=== PATIENT | female | born 1985 | race Hispanic/Latino ===

== ENCOUNTER 2019-04-29 09:52 | Outpatient (CLI) | payer MEDICAID ==
[2019-04-29] MEDS ORDERED: LACTATED RINGERS 500 ML IV ONE (12:09)
[2019-04-29 13:05] VITALS: BP 138/87
--- NOTE | 2019-04-29 13:52 | Ultrasound Report ---
ULTRASOUND OBSTETRIC LIMITED INDICATION / CLINICAL INFORMATION: fell down stairs. TECHNIQUE: Transabdominal ultrasound imaging. COMPARISON: None available. FINDINGS: HEART RATE (beats per minute): 157 AMNIOTIC FLUID INDEX (cm) = not measured PRESENTATION: Cephalic. ADDITIONAL FINDINGS: The placenta is anterior, left lateral, grade 0. No abruption is demonstrated. IMPRESSION: No significant abnormality. Signer Name: Allen Griggs Jr, MD Signed: 04/29/2019 1:48 PM Workstation Name: [id number]
== END 2019-04-29 16:00 | disposition home or self-care (01) ==
LOC: TRG 09:52
PROVIDERS: ATTEND Obstetrics & Gynecology
DX: O47.02 False labor before 37 completed weeks of gestation, second trimester (principal); Z3A.26 26 weeks gestation of pregnancy
CPT/HCPCS: 59025; 76815; Q0177

== ENCOUNTER 2019-05-12 12:26 | Outpatient (CLI) | payer MEDICAID ==
[2019-05-12 12:40] VITALS: BP 123/73
[2019-05-12] MEDS ORDERED: DIPHENOXYLATE/ATROPINE TAB PO ONE (12:53)
[2019-05-12] MEDS ORDERED: LACTATED RINGERS 1,000 ML IV ONE (12:53)
[2019-05-12] MEDS ORDERED: FAMOTIDINE 20 MG/2 ML INJ IV ONE (12:54)
[2019-05-12] MEDS ORDERED: LACTATED RINGERS 1,000 ML IV SCH (13:00)
[2019-05-12 13:42] LABS: Hematocrit 32.7 % (30.3-42.9); Hemoglobin 11.4 gm/dl (10.1-14.3); Mean Corpuscular HGB Conc 35 % (30-34); Mean Corpuscular Volume 89 fl (79-97); Platelet Count 277 K/mm3 (140-440); Red Blood Count 3.66 M/mm3 (3.65-5.03); Red Cell Distribution Width 13.2 % (13.2-15.2)
[2019-05-12 14:01] LABS: Alanine Aminotransferase 14 units/L (7-56); Albumin 3.6 g/dL (3.9-5); BUN/Creatinine Ratio 15; Blood Urea Nitrogen 9 mg/dL (7-17); Calcium 9.1 mg/dL (8.4-10.2); Hemolysis Index 17
[2019-05-12 14:18] LABS: Bacteria,Urine 2+ /HPF (Negative); Bilirubin,Urine NEG (Negative); Blood,Urine NEG (Negative); Color,Urine Yellow (Yellow); Mucus,Urine FEW /HPF; Protein,Urine <15 mg/dL mg/dL (Negative); Urobilinogen,Urine < 2.0 mg/dL (<2.0)
== END 2019-05-12 14:55 | disposition home or self-care (01) ==
LOC: TRG 12:26
PROVIDERS: ATTEND Obstetrics & Gynecology
DX: O26.893 Other specified pregnancy related conditions, third trimester (principal); R19.7 Diarrhea, unspecified; O16.3 Unspecified maternal hypertension, third trimester; O47.03 False labor before 37 completed weeks of gestation, third trimester; Z3A.28 28 weeks gestation of pregnancy
CPT/HCPCS: 36415; 59025; 80053; 81001; 85027; 87086; 87400; 96360; 96361; 96374; J7120

== ENCOUNTER 2019-05-23 12:01 | Outpatient (CLI) | payer MEDICAID ==
[2019-05-23 12:40] LABS: Bacteria,Urine 2+ /HPF (Negative); Bilirubin,Urine NEG (Negative); Blood,Urine NEG (Negative); Color,Urine Yellow (Yellow); Mucus,Urine FEW /HPF; Protein,Urine <15 mg/dL mg/dL (Negative); Urobilinogen,Urine < 2.0 mg/dL (<2.0)
[2019-05-23] MEDS ORDERED: LACTATED RINGERS 1,000 ML IV SCH (13:00)
[2019-05-23 14:42] VITALS: BP 146/79
[2019-05-23] MEDS ORDERED: BICITRA ORAL LIQD 30ML ONE (14:47)
== END 2019-05-23 15:11 | disposition home or self-care (01) ==
LOC: TRG 12:01
PROVIDERS: ATTEND Obstetrics & Gynecology
DX: O26.893 Other specified pregnancy related conditions, third trimester (principal); R10.11 Right upper quadrant pain; R19.7 Diarrhea, unspecified; O10.913 Unspecified pre-existing hypertension complicating pregnancy, third trimester; O47.03 False labor before 37 completed weeks of gestation, third trimester; Z3A.30 30 weeks gestation of pregnancy
CPT/HCPCS: 36415; 59025; 81001; 82150; 83690; 96360; 96361; J7120

== ENCOUNTER 2019-06-17 13:06 | Outpatient (CLI) | payer MEDICAID ==
[2019-06-17] MEDS ORDERED: ALUM-MAG HYDROXIDE-SIMETHICONE 200-200-20MG/5ML ORAL LIQD 30 ML PO PRN (13:54)
[2019-06-17] MEDS ORDERED: DOCUSATE SODIUM 100 MG CAP PO PRN (13:54)
[2019-06-17] MEDS ORDERED: SIMETHICONE 80 MG CHEW TAB PO PRN (13:54)
[2019-06-17] MEDS ORDERED: ONDANSETRON 4 MG ODT TAB PO PRN (13:54)
[2019-06-17] MEDS ORDERED: MAGNESIUM SULFATE 4 GM/100 ML BAG IV ONE (13:54)
[2019-06-17] MEDS ORDERED: hydrALAZINE 20 MG/1 ML INJ IV PRN (13:54)
[2019-06-17] MEDS ORDERED: MAGNESIUM HYDROXIDE (MOM) ORAL LIQD UDC PO PRN (13:54)
[2019-06-17] MEDS ORDERED: MAGNESIUM SULFATE 40GM/1000ML 40 GM/1,000 ML BAG IV SCH (14:00)
[2019-06-17 14:01] LABS: Hematocrit 33.7 % (30.3-42.9); Hemoglobin 11.3 gm/dl (10.1-14.3); Mean Corpuscular HGB Conc 34 % (30-34); Mean Corpuscular Volume 86 fl (79-97); Platelet Count 301 K/mm3 (140-440); Red Cell Distribution Width 13.5 % (13.2-15.2)
[2019-06-17 14:23] LABS: Alanine Aminotransferase 18 units/L (7-56); Uric Acid 4.1 mg/dL (3.5-7.6)
[2019-06-17] MEDS: BETAMET ACET/BETAMET NA PH 6 MG/ML INJ 5 ML MDV IM SCH (15:34)
[2019-06-17] MEDS: LACTATED RINGERS 1,000 ML IV SCH ×2 (15:36→23:20)
[2019-06-17 16:19] LABS: Bacteria,Urine 3+ /HPF (Negative); Bilirubin,Urine NEG (Negative); Blood,Urine NEG (Negative); Color,Urine Yellow (Yellow); Mucus,Urine 3+ /HPF; Protein,Urine <15 mg/dL mg/dL (Negative); Urobilinogen,Urine < 2.0 mg/dL (<2.0)
--- NOTE | 2019-06-17 16:58 | History and Physical Report ---
History of Present Illness Date of examination: 06/17/19 Chief complaint: pt admitted from [facility] for admission to evaluate blood pressure History of present illness: EDC Calculations by LMP: 08/01/2019 Past History : 4 Term Births: 3 Premature Births: 0 Living Children: 3 Para: 3 Mult. Births: 0 Prev : 0 Prev. attempt? none Aborta: 0 Elect. Ab: 0 Spont. Ab: 0 Ectopics: 0 # 1 Delivery date: 01/2005 Delivery type: Anesthesia type: epidural [place] [facility] [place]: Female weight: 5-12 Comments: elvated BP 3rd trimester no meds # 2 Delivery date: 03/2009 Weeks Gestation: 37 Delivery type: Anesthesia type: epidural Delivery location: [facility] Infant Sex: Female weight: 6-7 Comments: elevated BP dx @ 16 weeks on meds ; IOL @ 37 weeks for PIH # 3 Delivery date: 07/24/2013 Weeks Gestation: 37 Delivery type: Vaginal Anesthesia type: epidural Delivery location: [facility] Sex: female weight: 5.06 Comments: pre-eclampsia/eclampsia Past Medical History: Thyroid Disorder stopped meds Pt encouraged to f/u with PCP Depression - takes Effexor daily Hypertension Reports "sponge kidneys" with 2nd preg. and saw neuro ophthalmologist once. No f/u needed. Past Surgical History: Reviewed history from 06/18/2012 and no changes required: negative Breast Augmentation: 11/2011 Social History: Patient is Patient is single Smoking History: Patient has never smoked. Past Medical History Abnormal PAP: negative POPPY Exposure: negative Infertility: negative Uterine Anomaly: negative Uterine Surgery (not C/S): negative Other Gynecologic Problems: negative Social Hx: Patient is Patient is single Smoking History: Patient has never smoked. Infection History Hx of STD: none HIV Risk Eval: low risk Hepatitis B Risk Eval: low risk Personal hx. of genital herpes: no Partner hx. of genital herpes: no Rash, Viral, or Febrile illness since last LMP? no Genetic History Congenital Heart Defect: Mom: no Dad: no Michael Disease: Mom: no Dad: no Thalassemia Mom: no Dad: no Neural Tube Defect Mom: no Dad: no Down's Syndrome Mom: no Dad: no Mono-Sachs Mom: no Dad: no Sickle Cell Disease/Trait Mom: no Dad: no Hemophilia Mom: no Dad: no Muscular Dystrophy Mom: no Dad: no Cystic Fibrosis Mom: no Dad: no [place] Chorea Mom: no Dad: no Mental Retardation Mom: no Dad: no Fragile X Mom: no Dad: no Other Genetic/Chromosomal Disorder Mom: no Dad: no Child w/other defect Mom: no Dad: no Enviromental Exposures Xray Exposure: no Medication, drug, or alcohol use since LMP: no Chemical/Other Exposure: no Exposure to Cat Liter: no Hx of Parvovirus (Fifth Disease): no Active Medications (reviewed today): VENLAFAXINE HCL ER 225 MG ORAL XR24H () Current Allergies (reviewed today): No known allergies Past History Past Medical History: hypertension, thyroid disease, other (depression) Past Surgical History: breast surgery (augmentation) Family/Genetic History: none Social history: no significant social history - Obstetrical History Expected Date of Delivery: 08/01/19 Actual Gestation: 33 Week(s) 4 Day(s) : 4 Para: 3 Hx # Term Pregnancies: 3 Number of Pregnancies: 0 Spontaneous Abortions: 0 Induced : 0 Number of Living Children: 3 Medications and Allergies Allergies Allergy/AdvReac Type Severity Reaction Status Date / Time No Known Allergies Allergy Verified 05/23/19 12:03 Home Medications Medication Instructions Recorded Confirmed Last Taken Type Vits96/Iron Fum/Folic 1 each PO QDAY 02/24/13 06/17/19 06/17/19 07:30 History [ Tablet] labetaloL [Labetalol 100mg TAB] 200 mg PO BID 07/07/13 06/17/19 06/17/19 07:30 H istory Active Meds: Active Medications Acetaminophen (Tylenol) 650 mg PO Q6H PRN PRN Reason: Pain MILD(1-3)/Fever >100.5/JUAREZ Al Hydrox/Mg Hydrox/Simethicone (Alum-Mag Hydrox-Simeth [id number]/5ml) 30 ml PO Q6H PRN PRN Reason: Indigestion Betamethasone Acet/Betameth SodPhos (Celestone Soluspan) 12 mg IM Q24HR MIREYA Stop: 06/18/19 10:01 Last Admin: 06/17/19 15:34 Dose: 12 mg Documented by: Docusate Sodium (Colace) 100 mg PO Q12H PRN PRN Reason: Constipation Hydralazine HCl (Apresoline) 5 mg IV ONCE PRN PRN Reason: Hypertension Last Admin: 06/17/19 16:20 Dose: 5 mg Documented by: Lactated Ringer's (Lactated Ringers) 1,000 mls @ 125 mls/hr IV DIRECT MIREYA Last Admin: 06/17/19 15:36 Dose: 125 mls/hr Documented by: Magnesium Sulfate (Magnesium Sulfate 40gm/1000ml) 40 gm in 1,000 mls @ 50 mls/hr IV DIRECT MIREYA Last Admin: 06/17/19 16:09 Dose: 2 gm/hr, 50 mls/hr Documented by: Labetalol HCl (Labetalol) 200 mg PO BID MIREYA Magnesium Hydroxide (Milk Of Magnesia) 30 ml PO QHS PRN PRN Reason: Laxative Effect Multivitamins/Iron/Calcium ( Vitamin) 1 each PO QDAY [facility] Ondansetron HCl (Zofran Odt) 4 mg PO Q8H PRN PRN Reason: Nausea And Vomiting Simethicone (Mylicon) 80 mg PO Q6H PRN PRN Reason: Gas pain Review of Systems All systems: negative Eyes: no blurred vision Ears, nose, mouth and throat: headache (2/10) Cardiovascular: no chest pain, no palpitations, no edema Respiratory: no cough, no shortness of breath Neurological: headaches, no seizures - Vital Signs Vital signs: Vital Signs Pulse BP 114 H 159/100 06/17/19 13:32 06/17/19 13:32 Temp Pulse Resp BP Pulse Ox 98.2 F 103 H 18 158/92 97 06/17/19 14:20 06/17/19 16:48 06/17/19 14:20 06/17/19 16:48 06/17/19 16:48 - Physical Exam Breasts: Positive: normal Cardiovascular: Regular rate, Normal S1, Normal S2 Lungs: Positive: Clear to auscultation, Normal air movement Abdomen: Positive: normal appearance, soft, normal bowel sounds Genitourinary (Female): Positive: normal external genitalia, normal perenium Vulva: both: normal Vagina: Positive: normal moisture Uterus: Positive: normal size, normal contour Anus/Rectum: Positive: normal perianal skin Extremities: Positive: normal (trace edema, no pitting) Deep Tendon Reflex Grade: Normal +2 - Obstetrical FHR: category 1 Uterine Contraction Monitor Mode: External Uterine Tone Measurement Phase: Resting Results Result Diagrams: 06/17/19 13:46 06/17/19 13:46 Abnormal lab results 06/17/19 Range/Units 13:46 Creatinine 0.5 L (0.7-1.2) mg/dL All other labs normal. Assessment and Plan Patient sent from [facility] office for admission d/t elevated blood pressure in the severe range. Plan for magnesium sulfate, steroids. delivery is indicated for s/s pre-eclampsia with sever factors or non-reassuring status. Previous TP collected 03/28/19: 211 GBS collected, results pending pt c/p JUAREZ rated 07/14, will give dose tylenol and monitor. no epigastric pain or visual changes. - Patient Problems (1) 33 weeks gestation of Current Visit: Yes Status: Acute (2) HTN (hypertension) Current Visit: Yes Status: Acute Qualifiers: Hypertension type: essential hypertension Qualified Code(s): I10 - Essential (primary) hypertension Plan to address problem: pre-e labs Mag sulfate 2gm/hr for neuroprotection steroids for lung maturity closely monitor b/p's, urine output Continue labetalol 200mg PO BID (3) Depression Current Visit: Yes Status: Acute Qualifiers: Depression Type: major depressive disorder Major depression recurrence: recurrent Psychotic features: without psychotic features
[2019-06-17] MEDS: ACETAMINOPHEN 325 MG TAB PO PRN (20:10)
[2019-06-17] MEDS ORDERED: ZOLPIDEM 5 MG TAB PO PRN (23:09)
[2019-06-18] MEDS ORDERED: ZOLPIDEM 5 MG TAB PO PRN (07:03)
--- NOTE | 2019-06-18 08:45 | Progress Note ---
Assessment and Plan - Patient Problems (1) HTN (hypertension) Current Visit: Yes Status: Acute Qualifiers: Hypertension type: essential hypertension Qualified Code(s): I10 - Essential (primary) hypertension Plan to address problem: -cont bp meds for now -complete 24hr urine protein to r/o superimposed preE. Pt at this time does not appear to have any s/sx of pre E. -pt seen by [facility] this am note pending bur recommendations are to con't the 24hr protein, d/c the magnesium, complete the steroids for FLM at this. Will refer to note for more recommendations if any. -Pt expressed understanding and agrees with plan of care. (2) 34 weeks gestation of Current Visit: No Status: Acute Subjective - Subjective Date of service: 06/18/19 Principal diagnosis: IUP @ 33 5/7 weeks 2)CHTN 3) r/o superimposed pre E Interval history: No c/o this am. I d/w that the plan of care as per my conversation with Dr. Root([facility]) is to con't the 24hr urine collection, d/c the magnesium, and complete administration of steroids. If urine is in range that is not c/w preE she will likely be d/c home with close follow. I d/w that she will be on bedrest without going back to work until after post period due to bp responding to bedrest and bp meds. Pt states she has no questions at this time. Will allow low sodium diet this am. Pt agrees with plan of care. Patient reports: movement normal, no new complaints, no loss of fluid, no vaginal bleeding, no contractions Objective - Vital Signs Vital Signs: Vital Signs - 12hr 06/17/19 06/17/19 06/17/19 20:46 20:48 20:53 Temperature Pulse Rate 106 H 106 H 109 H Respiratory Rate Blood Pressure Blood Pressure [Left] O2 Sat by Pulse 93 95 94 Oximetry 06/17/19 06/17/19 06/17/19 20:57 20:58 21:02 Temperature Pulse Rate 109 H 104 H 105 H Respiratory Rate Blood Pressure 138/88 Blood Pressure [Left] O2 Sat by Pulse 95 94 Oximetry 06/17/19 06/17/19 06/17/19 21:03 21:07 21:08 Temperature Pulse Rate 107 H 105 H 103 H Respiratory Rate Blood Pressure Blood Pressure [Left] O2 Sat by Pulse 95 94 95 Oximetry 06/17/19 06/17/19 06/17/19 21:10 21:13 21:14 Temperature Pulse Rate 104 H 107 H Respiratory 16 Rate Blood Pressure Blood Pressure [Left] O2 Sat by Pulse 96 94 Oximetry 06/17/19 06/17/19 06/17/19 21:18 21:20 21:23 Temperature Pulse Rate 105 H 105 H 105 H Respiratory Rate Blood Pressure Blood Pressure [Left] O2 Sat by Pulse 94 94 96 Oximetry 06/17/19 06/17/19 06/17/19 21:27 21:28 21:32 Temperature Pulse Rate 105 H 106 H 104 H Respiratory Rate Blood Pressure 146/80 Blood Pressure [Left] O2 Sat by Pulse 94 94 94 Oximetry 06/17/19 06/17/19 06/17/19 21:33 21:37 21:38 Temperature Pulse Rate 107 H 107 H 107 H Respiratory Rate Blood Pressure Blood Pressure [Left] O2 Sat by Pulse 95 94 94 Oximetry 06/17/19 06/17/19 06/17/19 21:43 21:47 21:48 Temperature Pulse Rate 106 H 105 H 107 H Respiratory Rate Blood Pressure Blood Pressure [Left] O2 Sat by Pulse 96 94 95 Oximetry 06/17/19 06/17/19 06/17/19 21:53 21:57 21:58 Temperature Pulse Rate 110 H 109 H 104 H Respiratory Rate Blood Pressure 136/79 Blood Pressure [Left] O2 Sat by Pulse 96 95 Oximetry 06/17/19 06/17/19 06/17/19 22:01 22:03 22:07 Temperature Pulse Rate 99 H 97 H 95 H Respiratory Rate Blood Pressure Blood Pressure [Left] O2 Sat by Pulse 94 95 94 Oximetry 06/17/19 06/17/19 06/17/19 22:08 22:13 22:16 Temperature Pulse Rate 93 H 93 H 93 H Respiratory Rate Blood Pressure Blood Pressure [Left] O2 Sat by Pulse 94 94 93 Oximetry 06/17/19 06/17/19 06/17/19 22:18 22:23 22:24 Temperature Pulse Rate 91 H 90 89 Respiratory Rate Blood Pressure Blood Pressure [Left] O2 Sat by Pulse 94 95 94 Oximetry 06/17/19 06/17/19 06/17/19 22:27 22:28 22:30 Temperature Pulse Rate 94 H 88 93 H Respiratory Rate Blood Pressure 117/66 Blood Pressure [Left] O2 Sat by Pulse 94 94 Oximetry 06/17/19 06/17/19 06/17/19 22:33 22:37 22:38 Temperature Pulse Rate 89 89 89 Respiratory Rate Blood Pressure Blood Pressure [Left] O2 Sat by Pulse 94 94 94 Oximetry 06/17/19 06/17/19 06/17/19 22:43 22:48 22:51 Temperature Pulse Rate 84 85 86 Respiratory Rate Blood Pressure Blood Pressure [Left] O2 Sat by Pulse 95 94 94 Oximetry 06/17/19 06/17/19 06/17/19 22:53 22:57 22:58 Temperature Pulse Rate 89 94 H 90 Respiratory Rate Blood Pressure 117/61 Blood Pressure [Left] O2 Sat by Pulse 93 94 Oximetry 06/17/19 06/17/19 06/17/19 23:03 23:06 23:08 Temperature Pulse Rate 89 90 85 Respiratory Rate Blood Pressure Blood Pressure [Left] O2 Sat by Pulse 93 94 95 Oximetry 06/17/19 06/17/19 06/17/19 23:11 23:13 23:17 Temperature Pulse Rate 89 86 89 Respiratory Rate Blood Pressure Blood Pressure [Left] O2 Sat by Pulse 94 95 94 Oximetry 06/17/19 06/17/19 06/17/19 23:18 23:23 23:24 Temperature Pulse Rate 85 88 88 Respiratory Rate Blood Pressure Blood Pressure [Left] O2 Sat by Pulse 96 95 94 Oximetry 06/17/19 06/17/19 06/17/19 23:27 23:28 23:30 Temperature Pulse Rate 90 89 88 Respiratory Rate Blood Pressure 109/54 Blood Pressure [Left] O2 Sat by Pulse 96 94 Oximetry 06/17/19 06/17/19 06/17/19 23:33 23:35 23:38 Temperature Pulse Rate 88 82 Respiratory Rate Blood Pressure Blood Pressure [Left] O2 Sat by Pulse 96 94 96 Oximetry 06/17/19 06/17/19 06/17/19 23:40 23:43 23:47 Temperature Pulse Rate 85 84 85 Respiratory Rate Blood Pressure Blood Pressure [Left] O2 Sat by Pulse 94 94 94 Oximetry 06/17/19 06/17/19 06/17/19 23:48 23:52 23:53 Temperature Pulse Rate 84 84 88 Respiratory Rate Blood Pressure Blood Pressure [Left] O2 Sat by Pulse 93 94 95 Oximetry 06/17/19 06/17/19 06/18/19 23:57 23:58 00:00 Temperature 98.3 F Pulse Rate 93 H 94 H 83 Respiratory 16 Rate Blood Pressure 112/59 Blood Pressure 84/47 [Left] O2 Sat by Pulse 96 98 Oximetry 06/18/19 06/18/19 06/18/19 00:03 00:08 00:09 Temperature Pulse Rate 85 88 86 Respiratory Rate Blood Pressure Blood Pressure [Left] O2 Sat by Pulse 94 96 93 Oximetry 06/18/19 06/18/19 06/18/19 00:13 00:18 00:23 Temperature Pulse Rate 84 86 90 Respiratory Rate Blood Pressure Blood Pressure [Left] O2 Sat by Pulse 94 93 96 Oximetry 06/18/19 06/18/19 06/18/19 00:27 00:28 00:33 Temperature Pulse Rate 84 93 H 84 Respiratory Rate Blood Pressure 84/47 Blood Pressure [Left] O2 Sat by Pulse 94 96 94 Oximetry 06/18/19 06/18/19 06/18/19 00:38 00:42 00:43 Temperature Pulse Rate 86 87 88 Respiratory Rate Blood Pressure Blood Pressure [Left] O2 Sat by Pulse 96 94 97 Oximetry 06/18/19 06/18/19 06/18/19 00:48 00:53 00:57 Temperature Pulse Rate 83 83 84 Respiratory Rate Blood Pressure 102/56 Blood Pressure [Left] O2 Sat by Pulse 95 94 Oximetry 06/18/19 06/18/19 06/18/19 00:58 01:00 01:03 Temperature Pulse Rate 86 84 86 Respiratory Rate Blood Pressure Blood Pressure [Left] O2 Sat by Pulse 95 94 94 Oximetry 06/18/19 06/18/19 06/18/19 01:08 01:13 01:18 Temperature Pulse Rate 84 85 85 Respiratory Rate Blood Pressure Blood Pressure [Left] O2 Sat by Pulse 93 92 93 Oximetry 06/18/19 06/18/19 06/18/19 01:23 01:27 01:28 Temperature Pulse Rate 86 85 87 Respiratory Rate Blood Pressure 95/55 Blood Pressure [Left] O2 Sat by Pulse 92 92 Oximetry 06/18/19 06/18/19 06/18/19 01:33 01:38 01:43 Temperature Pulse Rate 87 89 84 Respiratory Rate Blood Pressure Blood Pressure [Left] O2 Sat by Pulse 92 93 93 Oximetry 06/18/19 06/18/19 06/18/19 01:48 01:53 01:57 Temperature Pulse Rate 86 87 85 Respiratory Rate Blood Pressure 94/55 Blood Pressure [Left] O2 Sat by Pulse 93 94 Oximetry 06/18/19 06/18/19 06/18/19 01:58 02:03 02:08 Temperature Pulse Rate 87 84 88 Respiratory Rate Blood Pressure Blood Pressure [Left] O2 Sat by Pulse 93 94 96 Oximetry 06/18/19 06/18/19 06/18/19 02:20 02:25 02:27 Temperature Pulse Rate 86 86 87 Respiratory Rate Blood Pressure 94/47 Blood Pressure [Left] O2 Sat by Pulse 95 95 Oximetry 06/18/19 06/18/19 06/18/19 02:30 02:35 02:40 Temperature Pulse Rate 87 90 88 Respiratory Rate Blood Pressure Blood Pressure [Left] O2 Sat by Pulse 93 92 92 Oximetry 06/18/19 06/18/19 06/18/19 02:45 02:50 02:55 Temperature Pulse Rate 90 91 H 89 Respiratory Rate Blood Pressure Blood Pressure [Left] O2 Sat by Pulse 92 90 91 Oximetry 06/18/19 06/18/19 06/18/19 02:57 03:00 03:05 Temperature Pulse Rate 89 90 91 H Respiratory Rate Blood Pressure 86/49 Blood Pressure [Left] O2 Sat by Pulse 92 93 Oximetry 06/18/19 06/18/19 06/18/19 03:10 03:15 03:20 Temperature Pulse Rate 91 H 91 H 90 Respiratory Rate Blood Pressure Blood Pressure [Left] O2 Sat by Pulse 92 92 92 Oximetry 06/18/19 06/18/19 06/18/19 03:25 03:27 03:30 Temperature Pulse Rate 91 H 90 91 H Respiratory Rate Blood Pressure 98/51 Blood Pressure [Left] O2 Sat by Pulse 93 92 Oximetry 06/18/19 06/18/19 06/18/19 03:35 03:40 03:45 Temperature Pulse Rate 89 89 89 Respiratory Rate Blood Pressure Blood Pressure [Left] O2 Sat by Pulse 93 95 94 Oximetry 06/18/19 06/18/19 06/18/19 03:50 03:55 03:57 Temperature Pulse Rate 89 92 H 89 Respiratory Rate Blood Pressure 99/52 Blood Pressure [Left] O2 Sat by Pulse 94 94 Oximetry 06/18/19 06/18/19 06/18/19 04:00 04:05 04:10 Temperature 97.8 F Pulse Rate 89 90 89 Respiratory 18 Rate Blood Pressure Blood Pressure 99/52 [Left] O2 Sat by Pulse 98 94 95 Oximetry 06/18/19 06/18/19 06/18/19 04:15 04:20 04:25 Temperature Pulse Rate 92 H 90 90 Respiratory Rate Blood Pressure Blood Pressure [Left] O2 Sat by Pulse 94 95 95 Oximetry 06/18/19 06/18/19 06/18/19 04:27 04:30 04:35 Temperature Pulse Rate 87 90 89 Respiratory Rate Blood Pressure 107/57 Blood Pressure [Left] O2 Sat by Pulse 94 94 Oximetry 06/18/19 06/18/19 06/18/19 04:40 04:45 04:50 Temperature Pulse Rate 86 84 87 Respiratory Rate Blood Pressure Blood Pressure [Left] O2 Sat by Pulse 95 95 96 Oximetry 06/18/19 06/18/19 06/18/19 04:55 04:57 05:00 Temperature Pulse Rate 84 87 87 Respiratory Rate Blood Pressure 107/58 Blood Pressure [Left] O2 Sat by Pulse 95 96 Oximetry 06/18/19 06/18/19 06/18/19 05:05 05:10 05:15 Temperature Pulse Rate 92 H 82 84 Respiratory Rate Blood Pressure Blood Pressure [Left] O2 Sat by Pulse 95 95 96 Oximetry 06/18/19 06/18/19 06/18/19 05:20 05:25 05:27 Temperature Pulse Rate 93 H 89 83 Respiratory Rate Blood Pressure 109/56 Blood Pressure [Left] O2 Sat by Pulse 96 97 Oximetry 06/18/19 06/18/19 06/18/19 05:30 05:35 05:40 Temperature Pulse Rate 87 93 H 88 Respiratory Rate Blood Pressure Blood Pressure [Left] O2 Sat by Pulse 96 95 94 Oximetry 06/18/19 06/18/19 06/18/19 05:45 05:50 05:55 Temperature Pulse Rate 88 93 H 91 H Respiratory Rate Blood Pressure Blood Pressure [Left] O2 Sat by Pulse 94 94 95 Oximetry 06/18/19 06/18/19 06/18/19 05:57 06:00 06:05 Temperature Pulse Rate 90 89 88 Respiratory Rate Blood Pressure 113/57 Blood Pressure [Left] O2 Sat by Pulse 94 94 Oximetry 06/18/19 06/18/19 06/18/19 06:10 06:15 06:20 Temperature Pulse Rate 89 101 H 88 Respiratory Rate Blood Pressure Blood Pressure [Left] O2 Sat by Pulse 93 95 95 Oximetry 06/18/19 06/18/19 06/18/19 06:25 06:27 06:30 Temperature Pulse Rate 87 85 84 Respiratory Rate Blood Pressure 100/50 Blood Pressure [Left] O2 Sat by Pulse 94 94 Oximetry 06/18/19 06/18/19 06/18/19 06:35 06:40 06:45 Temperature Pulse Rate 85 91 H 84 Respiratory Rate Blood Pressure Blood Pressure [Left] O2 Sat by Pulse 92 94 94 Oximetry 06/18/19 06/18/19 06/18/19 06:50 06:55 06:57 Temperature Pulse Rate 86 81 88 Respiratory Rate Blood Pressure 110/55 Blood Pressure [Left] O2 Sat by Pulse 94 94 Oximetry 06/18/19 06/18/19 06/18/19 07:00 07:05 07:10 Temperature Pulse Rate 85 86 85 Respiratory Rate Blood Pressure Blood Pressure [Left] O2 Sat by Pulse 92 92 92 Oximetry 06/18/19 06/18/19 06/18/19 07:15 07:20 07:25 Temperature Pulse Rate 83 85 86 Respiratory Rate Blood Pressure Blood Pressure [Left] O2 Sat by Pulse 92 92 92 Oximetry 06/18/19 06/18/19 06/18/19 07:27 07:30 07:33 Temperature Pulse Rate 85 86 85 Respiratory Rate Blood Pressure 111/60 Blood Pressure [Left] O2 Sat by Pulse 92 89 Oximetry 06/18/19 06/18/19 06/18/19 07:35 07:40 07:45 Temperature Pulse Rate 90 88 83 Respiratory Rate Blood Pressure Blood Pressure [Left] O2 Sat by Pulse 92 96 97 Oximetry 06/18/19 06/18/19 06/18/19 07:50 07:55 07:57 Temperature Pulse Rate 87 86 96 H Respiratory Rate Blood Pressure 128/73 Blood Pressure [Left] O2 Sat by Pulse 97 98 Oximetry 06/18/19 06/18/19 06/18/19 08:00 08:05 08:15 Temperature 97.7 F Pulse Rate 96 H 95 H Respiratory 20 Rate Blood Pressure Blood Pressure [Left] O2 Sat by Pulse 97 99 Oximetry 06/18/19 06/18/19 06/18/19 08:17 08:22 08:27 Temperature Pulse Rate 89 98 H 91 H Respiratory Rate Blood Pressure 120/65 Blood Pressure [Left] O2 Sat by Pulse 98 98 96 Oximetry 06/18/19 06/18/19 06/18/19 08:32 08:37 08:42 Temperature Pulse Rate 97 H 103 H 103 H Respiratory Rate Blood Pressure Blood Pressure [Left] O2 Sat by Pulse 97 97 97 Oximetry - Exam FHR: category 1 Uterine Contraction Pattern: Absent - Labs Labs: Abnormal Labs 06/17/19 06/17/19 06/18/19 13:46 19:00 00:29 Creatinine 0.5 L Magnesium 4.00 H 4.80 H 06/18/19 06:40 Creatinine Magnesium 5.40 H Laboratory Results - last 24 hr 06/17/19 06/17/19 06/17/19 13:46 13:46 15:15 WBC 11.0 RBC 3.90 Hgb 11.3 Hct 33.7 MCV 86 MCH 29 MCHC 34 RDW 13.5 Plt Count 301 Creatinine 0.5 L Estimated GFR > 60 Uric Acid 4.1 Magnesium AST 21 ALT 18 Lactate Dehydrogenase 169 Urine Color Urine Turbidity Urine pH Ur Specific [place] Urine Protein Urine Glucose (UA) Urine Ketones Urine Blood Urine Nitrite Urine Bilirubin Urine Urobilinogen Ur Leukocyte Esterase Urine WBC (Auto) Urine RBC (Auto) U Epithel Cells (Auto) Urine Bacteria (Auto) Urine Mucus Syphilis IgG Antibody HIV 1&2 Antibody Rapid HIV P24 Antigen Blood Type B POSITIVE Antibody Screen Negative 06/17/19 06/17/19 06/17/19 15:15 15:15 19:00 WBC RBC Hgb Hct MCV MCH MCHC RDW Plt Count Creatinine Estimated GFR Uric Acid Magnesium 4.00 H AST ALT Lactate Dehydrogenase Urine Color Urine Turbidity Urine pH Ur Specific [place] Urine Protein Urine Glucose (UA) Urine Ketones Urine Blood Urine Nitrite Urine Bilirubin Urine Urobilinogen Ur Leukocyte Esterase Urine WBC (Auto) Urine RBC (Auto) U Epithel Cells (Auto) Urine Bacteria (Auto) Urine Mucus Syphilis IgG Antibody Non-reactive HIV 1&2 Antibody Rapid Non react HIV P24 Antigen Non react Blood Type Antibody Screen 06/17/19 06/18/19 06/18/19 Unknown 00:29 06:40 WBC RBC Hgb Hct MCV MCH MCHC RDW Plt Count Creatinine Estimated GFR Uric Acid Magnesium 4.80 H 5.40 H AST ALT Lactate Dehydrogenase Urine Color Yellow Urine Turbidity Slightly-cloudy Urine pH 6.0 Ur Specific [place] 1.013 Urine Protein <15 mg/dl Urine Glucose (UA) Neg Urine Ketones Neg Urine Blood Neg Urine Nitrite Neg Urine Bilirubin Neg Urine Urobilinogen < 2.0 Ur Leukocyte Esterase Sm Urine WBC (Auto) 6.0 Urine RBC (Auto) 4.0 U Epithel Cells (Auto) 9.0 Urine Bacteria (Auto) 3+ Urine Mucus 3+ Syphilis IgG Antibody HIV 1&2 Antibody Rapid HIV P24 Antigen Blood Type Antibody Screen
[2019-06-18] MEDS: PRENATAL VIT27-FE FUMARATE-FOLIC ACID VIT TAB PO SCH (11:08)
[2019-06-18] MEDS: BETAMET ACET/BETAMET NA PH 6 MG/ML INJ 5 ML MDV IM SCH (15:50)
--- NOTE | 2019-06-18 18:31 | Consultation ---
Consult Note - Parent Education I met with parent(s) and discussed the following:: Need for NICU admission, Temp erature regulation, Slow feeding advancement and monitoring of tolerance. NG/OG feeds, Data for survival & survival without significant co-morbidities Parent(s) demonstrated understanding of all the information:: Yes Additional Comment: Mother states she will be discharged soon and plans are to deliver after 36 weeks. Does not desire futher education unless delivery imminent. Discussed availablity to provide further education if needed Assessment and Plan - Assessment Gestation:: 33.5 - Plan Plan: Agree with Mag & steroids Will attend delivery Please call NICU with questions
[2019-06-18 19:04] LABS: Creatinine,Urine 47.2 mg/dL (0.1-20.0)
--- NOTE | 2019-06-18 22:34 | Progress Note ---
Assessment and Plan A: 33 y.o. @ 31 wks r/o for pre e. 24 hr urine completed @ 630pm. P: Continue observation. Subjective - Subjective Date of service: 06/18/19 (Pt resting. State comfortable.) Principal diagnosis: IUP @ 33 5/7 weeks 2)CHTN 3) r/o superimposed pre E Patient reports: movement normal, no new complaints, no loss of fluid, no vaginal bleeding, no contractions Objective - Vital Signs Vital Signs: Vital Signs - 12hr 06/18/19 06/18/19 06/18/19 10:36 10:41 10:46 Temperature Pulse Rate 95 H 98 H 98 H Respiratory Rate Blood Pressure O2 Sat by Pulse 95 94 95 Oximetry 06/18/19 06/18/19 06/18/19 10:51 10:56 11:01 Temperature Pulse Rate 100 H 97 H 98 H Respiratory Rate Blood Pressure O2 Sat by Pulse 95 95 96 Oximetry 06/18/19 06/18/19 06/18/19 11:08 11:13 11:15 Temperature Pulse Rate 95 H 102 H 104 H Respiratory Rate Blood Pressure 117/77 127/88 O2 Sat by Pulse 97 98 Oximetry 06/18/19 06/18/19 06/18/19 11:18 11:23 11:28 Temperature Pulse Rate 95 H 97 H 94 H Respiratory Rate Blood Pressure O2 Sat by Pulse 98 96 97 Oximetry 06/18/19 06/18/19 06/18/19 11:33 11:38 11:43 Temperature Pulse Rate 96 H 94 H 98 H Respiratory Rate Blood Pressure O2 Sat by Pulse 97 97 97 Oximetry 06/18/19 06/18/19 06/18/19 11:48 11:53 11:58 Temperature Pulse Rate 95 H 94 H 93 H Respiratory Rate Blood Pressure O2 Sat by Pulse 96 96 98 Oximetry 06/18/19 06/18/19 06/18/19 12:03 12:08 12:13 Temperature Pulse Rate 97 H 95 H 98 H Respiratory Rate Blood Pressure O2 Sat by Pulse 98 98 97 Oximetry 06/18/19 06/18/19 06/18/19 12:18 12:22 12:23 Temperature 97.9 F Pulse Rate 104 H 97 H 100 H Respiratory 19 Rate Blood Pressure 141/66 O2 Sat by Pulse 97 99 Oximetry 06/18/19 06/18/19 06/18/19 14:19 15:59 16:00 Temperature 97.9 F Pulse Rate 96 H 97 H Respiratory Rate Blood Pressure 115/59 125/70 O2 Sat by Pulse Oximetry 06/18/19 06/18/19 06/18/19 18:27 21:42 21:45 Temperature Pulse Rate 98 H 100 H 100 H Respiratory Rate Blood Pressure 144/83 136/76 136/76 O2 Sat by Pulse Oximetry - Exam Breasts: deferred Cardiovascular: Regular rate Lungs: Normal air movement Abdomen: Present: normal appearance Vulva: both: normal Uterus: Present: normal (For uterus.) FHR: category 1 Uterine Contraction Monitor Mode: External Uterine Contraction Pattern: Absent Uterine Tone Measurement Phase: Resting Extremities: normal Deep Tendon Reflex Grade: Normal +2 - Labs Labs: Abnormal Labs 06/17/19 06/17/19 06/17/19 13:46 14:12 18:30 Creatinine 0.5 L Magnesium Urine Creatinine 47.2 H Ur Total Protein 24 Hr 350.00 H 06/17/19 06/18/19 06/18/19 19:00 00:29 06:40 Creatinine Magnesium 4.00 H 4.80 H 5.40 H Urine Creatinine Ur Total Protein 24 Hr 06/18/19 13:49 Creatinine Magnesium 3.10 H Urine Creatinine Ur Total Protein 24 Hr Laboratory Results - last 24 hr 06/17/19 06/17/19 06/18/19 14:12 18:30 00:29 Magnesium 4.80 H Urine Total Volume 3500 3500 Urine Creatinine 47.2 H Height (in) 64.0 Weight (lb) 463.0 Creatinine Clearance 142 Ur Total Protein 24 Hr 350.00 H Urine Total Protein 06/18/19 06/18/19 06:40 13:49 Magnesium 5.40 H 3.10 H Urine Total Volume Urine Creatinine Height (in) Weight (lb) Creatinine Clearance Ur Total Protein 24 Hr Urine Total Protein
--- NOTE | 2019-06-18 22:48 | Event Note ---
Date: 06/18/19 (Pt doing well. States comfortable.) Pt is doing well at this time. States that she is comfortable. 24 hr urine was completed at 630pm. Awaiting results. Blood pressure have been stable and WNL. At this time the pt denies JUAREZ, blurred vision, spots before her eyes and upper abdominal pain. I&O have been adequate. Pt is aware that she will possibly be discharged home on 06/19/2019 if all her test become back WNL. Dr. Poole has also spoken with patient regarding plan of care. Pt has no other questions or concerns at this time.
[2019-06-18] MEDS ORDERED: ACETAMINOPHEN 500 MG TAB ONE (23:31)
[2019-06-18] MEDS ORDERED: ACETAMINOPHEN 500 MG TAB PO ONE (23:46)
--- NOTE | 2019-06-18 23:48 | Event Note ---
Date: 06/18/19 called by RN due to pt having c/o feeling some right lower back pain and pelvic pressure. She also c/o feeling contractions. Pt examined and cx on closed/ long/oop. I d/w repeating labs now as 24hr protein was >300mg placing her in the mild range for preE but with bps well controlled we will closely monitor at this time and await futher recommendations by mfm. Pt expressed understanding and agrees with plan of care. Pt inquired about ambien to help her sleep and this order is in the chart and RN advised that pt may have it. All questions were addressed and answered.
[2019-06-18] MEDS ORDERED: LACTATED RINGERS 1,000 ML IV ONE (23:51)
[2019-06-19] MEDS: LACTATED RINGERS 1,000 ML IV SCH (00:54)
--- NOTE | 2019-06-19 05:30 | Progress Note ---
Assessment and Plan - Patient Problems (1) HTN (hypertension) Onset Date: ~06/19/19 Current Visit: Yes Status: Acute Qualifiers: Hypertension type: essential hypertension Qualified Code(s): I10 - Essential (primary) hypertension Plan to address problem: BP have been normotensive. Pt states she has rested well. Reports good FM. No ctx felt by pt since last evening. Occ mild ctx recorded. Will consult with Dr Márquez about poss d/c later today. IOL [facility] 07-14-19 @ 37w3d. DX Mild PreE Subjective - Subjective Date of service: 06/19/19 (sleeping soundly;easily aroused) Principal diagnosis: IUP @ 34w0d: CHTN with Mild PreE Patient reports: movement normal, no new complaints, no loss of fluid, no vaginal bleeding, no contractions Objective - Vital Signs Vital Signs: Vital Signs - 12hr 06/18/19 06/18/19 06/18/19 18:27 21:42 21:45 Pulse Rate 98 H 100 H 100 H Respiratory Rate Blood Pressure 144/83 136/76 136/76 O2 Sat by Pulse Oximetry 06/18/19 06/18/19 06/18/19 23:48 23:49 23:53 Pulse Rate 91 H 89 85 Respiratory 18 Rate Blood Pressure 133/68 O2 Sat by Pulse 95 97 Oximetry 06/18/19 23:58 Pulse Rate 88 Respiratory Rate Blood Pressure O2 Sat by Pulse 95 Oximetry - Exam Breasts: deferred Cardiovascular: Regular rate Lungs: Normal air movement Abdomen: Present: normal appearance, soft. Absent: distention, tenderness Vulva: both: normal Uterus: Present: normal FHR: auscultation normal, category 1 Uterine Contraction Monitor Mode: External Uterine Contraction Pattern: Irregular Uterine Contraction Intensity: Mild Extremities: normal Deep Tendon Reflex Grade: Normal +2 - Labs Labs: Abnormal Labs 06/17/19 06/17/19 06/17/19 13:46 14:12 18:30 Creatinine 0.5 L Magnesium Urine Creatinine 47.2 H Ur Total Protein 24 Hr 350.00 H 06/17/19 06/18/19 06/18/19 19:00 00:29 06:40 Creatinine Magnesium 4.00 H 4.80 H 5.40 H Urine Creatinine Ur Total Protein 24 Hr 06/18/19 13:49 Creatinine Magnesium 3.10 H Urine Creatinine Ur Total Protein 24 Hr Laboratory Results - last 24 hr 06/17/19 06/17/19 06/18/19 14:12 18:30 06:40 Magnesium 5.40 H Urine Total Volume 3500 3500 Urine Creatinine 47.2 H Height (in) 64.0 Weight (lb) 463.0 Creatinine Clearance 142 Ur Total Protein 24 Hr 350.00 H Urine Total Protein 10 06/18/19 13:49 Magnesium 3.10 H Urine Total Volume Urine Creatinine Height (in) Weight (lb) Creatinine Clearance Ur Total Protein 24 Hr Urine Total Protein
[2019-06-19 08:01] LABS: Hematocrit 27.8 % (30.3-42.9); Hemoglobin 9.3 gm/dl (10.1-14.3); Mean Corpuscular HGB Conc 34 % (30-34); Mean Corpuscular Volume 88 fl (79-97); Platelet Count 280 K/mm3 (140-440); Red Blood Count 3.16 M/mm3 (3.65-5.03); Red Cell Distribution Width 13.8 % (13.2-15.2)
--- NOTE | 2019-06-19 08:06 | Progress Note ---
Assessment and Plan IUP at 34 0/7 CHTN with superimposed preeclampsia Rec: Continue to monitor for worsening HTN , continue Labetalol at the current dose Repeat CBC/CMP pending Delivery advised no later than 37 0/7 weeks gestation, sooner if indicated based on severe HTN , lab derangements Subjective - Subjective Date of service: 06/19/19 Principal diagnosis: IUP @ 34w0d: CHTN with superimposed PreE Interval history: Denied JUAREZ,.visual changes, CP, RUQ pain Reports right flank discomfort and irregular contractions prior note stated that her cervix was closed She has completed her BMZ Patient reports: movement normal, no new complaints, no loss of fluid, no vaginal bleeding, no contractions Objective - Vital Signs Vital Signs: Vital Signs - 12hr 06/18/19 06/18/19 06/18/19 21:42 21:45 23:48 Pulse Rate 100 H 100 H 91 H Respiratory Rate Blood Pressure 136/76 136/76 O2 Sat by Pulse 95 Oximetry 06/18/19 06/18/19 06/18/19 23:49 23:53 23:58 Pulse Rate 89 85 88 Respiratory 18 Rate Blood Pressure 133/68 O2 Sat by Pulse 97 95 Oximetry 06/19/19 06/19/19 05:47 07:54 Pulse Rate 85 88 Respiratory Rate Blood Pressure 117/58 135/78 O2 Sat by Pulse Oximetry - Exam Narrative Exam: NAD laying in bed Abdomen: Present: normal appearance, soft FHR: category 1 Uterine Contraction Pattern: Irregular - Labs Labs: Abnormal Labs 06/17/19 06/17/19 06/17/19 13:46 14:12 18:30 WBC RBC Hgb Hct Creatinine 0.5 L Magnesium Urine Creatinine 47.2 H Ur Total Protein 24 Hr 350.00 H 06/17/19 06/18/19 06/18/19 19:00 00:29 06:40 WBC RBC Hgb Hct Creatinine Magnesium 4.00 H 4.80 H 5.40 H Urine Creatinine Ur Total Protein 24 Hr 06/18/19 06/19/19 13:49 07:19 WBC 13.6 H RBC 3.16 L Hgb 9.3 L Hct 27.8 L Creatinine Magnesium 3.10 H Urine Creatinine Ur Total Protein 24 Hr Laboratory Results - last 24 hr 06/17/19 06/17/19 06/18/19 14:12 18:30 13:49 WBC RBC Hgb Hct MCV MCH MCHC RDW Plt Count Magnesium 3.10 H Urine Total Volume 3500 3500 Urine Creatinine 47.2 H Height (in) 64.0 Weight (lb) 463.0 Creatinine Clearance 142 Ur Total Protein 24 Hr 350.00 H Urine Total Protein 10 06/19/19 07:19 WBC 13.6 H RBC 3.16 L Hgb 9.3 L Hct 27.8 L MCV 88 MCH 30 MCHC 34 RDW 13.8 Plt Count 280 Magnesium Urine Total Volume Urine Creatinine Height (in) Weight (lb) Creatinine Clearance Ur Total Protein 24 Hr Urine Total Protein
--- NOTE | 2019-06-19 08:10 | Progress Note ---
Assessment and Plan Per AM[facility]: Possible candidate for out pt surveillance if she remains stable today/nl labs. reassuring tracing Will need weekly BPP with AMFM ( will contact patient to schedule ) and weekly CBC/CMP with OB Continue to monitor for worsening HTN , continue Labetalol at the current dose Repeat CBC/CMP pending Delivery advised no later than 37 0/7 weeks gestation, sooner if indicated based on severe HTN , lab derangements Induction scheduled for 07/11/2019 at 0830 - Patient Problems (1) 33 weeks gestation of Current Visit: Yes Status: Acute (2) Depression Current Visit: Yes Status: Chronic Qualifiers: Depression Type: major depressive disorder Major depression recurrence: recurrent Psychotic features: without psychotic features Plan to address problem: She will continue Effexor, she took this same medication through her previous . (3) HTN (hypertension) Onset Date: ~06/19/19 Current Visit: Yes Status: Chronic Qualifiers: Hypertension type: essential hypertension Qualified Code(s): I10 - Essential (primary) hypertension Plan to address problem: Continue labetalol, states she does not need a prescription at this time (4) Pre-eclampsia Current Visit: No Status: Acute Qualifiers: Trimester: third trimester Qualified Code(s): O14.93 - Unspecified pre- eclampsia, third trimester Subjective - Subjective Date of service: 06/19/19 Principal diagnosis: IUP @ 33w6d: CHTN with superimposed PreE(mild) Interval history: Resting in bed no complaints. Patient reports: movement normal, no new complaints, no loss of fluid, no vaginal bleeding, no contractions, no other (No JUAREZ, visual changes or RUQ pain) Objective - Vital Signs Vital Signs: Vital Signs - 12hr 06/18/19 06/18/19 06/18/19 21:42 21:45 23:48 Pulse Rate 100 H 100 H 91 H Respiratory Rate Blood Pressure 136/76 136/76 O2 Sat by Pulse 95 Oximetry 06/18/19 06/18/19 06/18/19 23:49 23:53 23:58 Pulse Rate 89 85 88 Respiratory 18 Rate Blood Pressure 133/68 O2 Sat by Pulse 97 95 Oximetry 06/19/19 06/19/19 05:47 07:54 Pulse Rate 85 88 Respiratory Rate Blood Pressure 117/58 135/78 O2 Sat by Pulse Oximetry - Exam Breasts: deferred Cardiovascular: Regular rate Lungs: Clear to auscultation, Normal air movement Abdomen: Present: normal appearance. Absent: distention, tenderness Uterus: Present: fundal height above umbilicus. Absent: tenderness FHR: category 1 - Labs Labs: Abnormal Labs 06/17/19 06/17/19 06/17/19 13:46 14:12 18:30 WBC RBC Hgb Hct Creatinine 0.5 L Magnesium Urine Creatinine 47.2 H Ur Total Protein 24 Hr 350.00 H 06/17/19 06/18/19 06/18/19 19:00 00:29 06:40 WBC RBC Hgb Hct Creatinine Magnesium 4.00 H 4.80 H 5.40 H Urine Creatinine Ur Total Protein 24 Hr 06/18/19 06/19/19 13:49 07:19 WBC 13.6 H RBC 3.16 L Hgb 9.3 L Hct 27.8 L Creatinine Magnesium 3.10 H Urine Creatinine Ur Total Protein 24 Hr Laboratory Results - last 24 hr 06/17/19 06/17/19 06/18/19 14:12 18:30 13:49 WBC RBC Hgb Hct MCV MCH MCHC RDW Plt Count Magnesium 3.10 H Urine Total Volume 3500 3500 Urine Creatinine 47.2 H Height (in) 64.0 Weight (lb) 463.0 Creatinine Clearance 142 Ur Total Protein 24 Hr 350.00 H Urine Total Protein 10 06/19/19 07:19 WBC 13.6 H RBC 3.16 L Hgb 9.3 L Hct 27.8 L MCV 88 MCH 30 MCHC 34 RDW 13.8 Plt Count 280 Magnesium Urine Total Volume Urine Creatinine Height (in) Weight (lb) Creatinine Clearance Ur Total Protein 24 Hr Urine Total Protein
[2019-06-19 09:25] LABS: Alanine Aminotransferase 13 units/L (7-56); Uric Acid 3.9 mg/dL (3.5-7.6)
[2019-06-19] MEDS ORDERED: VENLAFAXINE XR 75 MG CAP PO SCH (10:00)
--- NOTE | 2019-06-19 10:09 | Event Note ---
Date: 06/19/19 Labs reviewed, s/w Mirta HANCOCK, patient with INT, up in shower. Labs appear stbe, probably dehydrated on admission( elevated HR), elevated WBC d/t steroids. Will observe BP's closely now that she has unrestricted mobility. Possibly allow home today.
[2019-06-19] MEDS: PRENATAL VIT27-FE FUMARATE-FOLIC ACID VIT TAB PO SCH (10:34)
[2019-06-19] MEDS ORDERED: ACETAMINOPHEN 325 MG TAB PO PRN (11:35)
--- NOTE | 2019-06-19 11:40 | Progress Note ---
Assessment and Plan - Patient Problems (1) HTN (hypertension) Onset Date: ~06/19/19 Current Visit: Yes Status: Chronic Qualifiers: Hypertension type: essential hypertension Qualified Code(s): I10 - Essential (primary) hypertension Plan to address problem: BP 150/90 prior to Labetalol and just after shower. Now it is 122/74. Pt states she does have a slight JUAREZ Tylenol po ordered. Encouraged pt to be OOB as if she is home. Sit in chair for meals. Will come back over after office to eval for d/c Subjective - Subjective Date of service: 06/19/19 (pt disappointed to not go home now; She is aware we will try for later today) Principal diagnosis: IUP @ 33w6d: CHTN with superimposed PreE(mild) Patient reports: movement normal, no new complaints, no loss of fluid, no vaginal bleeding, no contractions, no other (No JUAREZ, visual changes or RUQ pain) Objective - Vital Signs Vital Signs: Vital Signs - 12hr 06/18/19 06/18/19 06/18/19 23:48 23:49 23:53 Pulse Rate 91 H 89 85 Respiratory 18 Rate Blood Pressure 133/68 O2 Sat by Pulse 95 97 Oximetry 06/18/19 06/19/19 06/19/19 23:58 05:47 07:54 Pulse Rate 88 85 88 Respiratory Rate Blood Pressure 117/58 135/78 O2 Sat by Pulse 95 Oximetry 06/19/19 06/19/19 06/19/19 10:33 10:34 11:33 Pulse Rate 109 H 109 H 88 Respiratory Rate Blood Pressure 155/90 155/90 126/72 O2 Sat by Pulse Oximetry - Exam Breasts: deferred Cardiovascular: Regular rate Lungs: Clear to auscultation Abdomen: Present: normal appearance, soft, normal bowel sounds. Absent: distention, tenderness Vulva: both: normal Uterus: Present: normal FHR: auscultation normal, category 1 Uterine Contraction Monitor Mode: External Uterine Contraction Pattern: Absent Uterine Tone Measurement Phase: Resting Extremities: normal Deep Tendon Reflex Grade: Normal +2 - Labs Labs: Abnormal Labs 06/17/19 06/17/19 06/17/19 13:46 14:12 18:30 WBC RBC Hgb Hct Creatinine 0.5 L Magnesium Lactate Dehydrogenase Urine Creatinine 47.2 H Ur Total Protein 24 Hr 350.00 H 06/17/19 06/18/19 06/18/19 19:00 00:29 06:40 WBC RBC Hgb Hct Creatinine Magnesium 4.00 H 4.80 H 5.40 H Lactate Dehydrogenase Urine Creatinine Ur Total Protein 24 Hr 06/18/19 06/19/19 06/19/19 13:49 07:19 07:19 WBC 13.6 H RBC 3.16 L Hgb 9.3 L Hct 27.8 L Creatinine 0.5 L Magnesium 3.10 H Lactate Dehydrogenase 194 H Urine Creatinine Ur Total Protein 24 Hr Laboratory Results - last 24 hr 06/17/19 06/17/19 06/18/19 14:12 18:30 13:49 WBC RBC Hgb Hct MCV MCH MCHC RDW Plt Count Creatinine Estimated GFR Uric Acid Magnesium 3.10 H AST ALT Lactate Dehydrogenase Urine Total Volume 3500 3500 Urine Creatinine 47.2 H Height (in) 64.0 Weight (lb) 463.0 Creatinine Clearance 142 Ur Total Protein 24 Hr 350.00 H Urine Total Protein 10 06/19/19 06/19/19 07:19 07:19 WBC 13.6 H RBC 3.16 L Hgb 9.3 L Hct 27.8 L MCV 88 MCH 30 MCHC 34 RDW 13.8 Plt Count 280 Creatinine 0.5 L Estimated GFR > 60 Uric Acid 3.9 Magnesium AST 19 ALT 13 Lactate Dehydrogenase 194 H Urine Total Volume Urine Creatinine Height (in) Weight (lb) Creatinine Clearance Ur Total Protein 24 Hr Urine Total Protein
[2019-06-19] MEDS: ACETAMINOPHEN 325 MG TAB PO PRN (11:53)
[2019-06-19 15:51] VITALS: BP 122/63
--- NOTE | 2019-06-19 16:03 | Discharge Summary ---
Providers - Providers Date of discharge: 06/19/19 (pt agrees to d/c F/U with [facility] Sunday and with OB ) Attending physician: WADE HUIZAR 06/17/19 14:10 Consult to Physician [CONS] Routine Comment: Consulting Provider: LAW NATH Physician Instructions: Reason For Exam: ELEVATED BLOOD PRESSURES 06/17/19 21:11 Consult to Physician [CONS] Routine Comment: Consulting Provider: THERESE PADILLA Physician Instructions: Reason For Exam: r/o pre-e, potential delivery Primary care physician: WADE HUIZAR Hospitalization Reason for admission: assessment for PreE Condition: Good Disposition: DC-01 TO HOME OR SELFCARE - Discharge Diagnoses (1) HTN (hypertension) Status: Chronic Qualifiers: Hypertension type: essential hypertension Qualified Code(s): I10 - Essential (primary) hypertension Comment: RTO next week Core Measure Documentation - Palliative Care Palliative Care/ Comfort Measures: Not Applicable - Core Measures Any of the following diagnoses?: none - VTE Discharge Requirements Deep Vein Thrombosis/Pulmonary Embolism Present on Admission: No Has pt received <5 days of overlap therapy or INR<2.0: No Anticoagulant overlap therapy prescribed at discharge: No Contraindication No Overlap Therapy order at DC: Not Indicated - Acute DC Discharge Requirements Aspirin at discharge: No Reason for no aspirin on DC: Medical contraindication GERTRUDIS/ARB for LVSD if EF <40%: Not Applicable Reason for no GERTRUDIS/ARB: Medical contraindication Beta kvng at discharge: No Reason for no beta kvng on DC: Medical contraindication Statin for LDL = or >100 mg/dl on DC: Not Applicable Reason for no statin on DC: Medical contraindication - Heart Failure Discharge Requirements GERTRUDIS/ARB for LVSD if EF <40%: Not Applicable Reason for no GERTRUDIS/ARB: Medical contraindication Beta kvng at discharge: No Reason for no beta kvng on DC: Medical contraindication - Stroke Discharge Requirements Statin for LDL = or >70 mg/dl on DC: Not Applicable Reason for no statin on DC: Not Indicated Anticoag for atrial fib/atrial flutter: Not Applicable Reason for no anticoag for AF/F on DC: Not Indicated Antithrombotic for ischemic stroke: No Reason for no antithrombotic on DC: Not Indicated Exam - Constitutional Vitals: Temp Pulse Resp BP Pulse Ox 98.3 F 87 18 122/63 95 06/19/19 11:55 06/19/19 15:51 06/19/19 07:54 06/19/19 15:51 06/18/19 23:58 General appearance: Present: no acute distress, well-nourished - EENT Eyes: Present: PERRL ENT: hearing intact, clear oral mucosa - Neck Neck: Present: supple, normal ROM - Respiratory Respiratory effort: normal Respiratory: bilateral: CTA - Cardiovascular Heart Sounds: Present: S1 & S2. Absent: rub, click - Extremities Extremities: pulses symmetrical, No edema Peripheral Pulses: within normal limits - Abdominal General gastrointestinal: Present: soft, non-tender, non-distended, normal bowel sounds Female genitourinary: Present: normal - Integumentary Integumentary: Present: clear, warm, dry - Musculoskeletal Musculoskeletal: gait normal, strength equal bilaterally - Psychiatric Psychiatric: appropriate mood/affect, intact judgment & insight - Neurologic Neurologic: CNII-XII intact, moves all extremities Plan Activity: advance as tolerated, other (must not be out of house) Weight Bearing Status: Non-Weight Bearing Diet: low salt Follow up with: WADE HUIZAR MD [Primary Care Provider] - 06/26/19 (As scheduled BP check twice a day call if >160/100)
== END 2019-06-19 16:40 | disposition home or self-care (01) ==
LOC: TRG 13:06 → LD 13:06 → TRG 13:07
PROVIDERS: ATTEND Obstetrics & Gynecology
DX: O10.913 Unspecified pre-existing hypertension complicating pregnancy, third trimester (principal); O99.343 Other mental disorders complicating pregnancy, third trimester; F33.9 Major depressive disorder, recurrent, unspecified; Z3A.33 33 weeks gestation of pregnancy
CPT/HCPCS: 36415; 81001; 82565; 82570; 82575; 83615; 83735; 84156; 84450; 84460; 84550; 85027; 86592; 86850; 86900; 86901; 87116; 87806; 96360; 96361; 96365; 96366; 96372; 96375; J0360; J0702; J3475; J7120